=== PATIENT | female | born 1995 | race Caucasian/White ===

== ENCOUNTER 2021-01-10 17:04 | Emergency (ER) | payer MEDICAID ==
[~2021-01-10] VITALS: Ht 162.6 cm; Wt 109.5 kg
[2021-01-10 17:07] VITALS: Ht 162.6 cm; Wt 109.5 kg
[2021-01-10] MEDS ORDERED: NAPROSYN500 MG PO (19:39)
[2021-01-11 03:33] VITALS: BP 122/74
== END 2021-01-11 03:34 | disposition home or self-care (01) ==
LOC: D.ER 17:04
DX: M94.0 Chondrocostal junction syndrome [Tietze] (principal); R07.9 Chest pain, unspecified

== ENCOUNTER → 2021-02-14 17:58 | Outpatient (CLI) | payer MEDICAID ==
[2021-01-10 17:07] VITALS: BMI 41.4
[~2021-02-14 17:58] MED LIST: NAPROSYN500 MG PO
== END | disposition home or self-care (01) ==
LOC: D.RAD 17:58
PROVIDERS: ATTEND Nurse Practitioner Family
DX: M25.541 Pain in joints of right hand (principal)